=== PATIENT | male | born 1960 | race Caucasian/White ===

== ENCOUNTER 2019-10-31 11:45 | Inpatient (IN) | payer BC ==
[2019-11-03 11:26] VITALS: BMI 31.9
[2019-11-05] MEDS ORDERED: cefOXitin Sodium/Dextrose 2 GM/50 ML BAG ONE ×2 (06:10→09:28)
[2019-11-05] MEDS ORDERED: Lidocaine 1% w/Epinephrine 1:100K 20 ML VIAL ONE (06:38)
[2019-11-05] MEDS ORDERED: Bupivacaine 0.25% HCL 30 ML VIAL ONE (06:38)
[2019-11-05] MEDS ORDERED: Fentanyl 100 MCG/2 ML VIAL ONE ×5 (06:42→10:59)
[2019-11-05] MEDS ORDERED: Lidocaine 1% (PF) 30 ML VIAL ONE (06:42)
[2019-11-05] MEDS ORDERED: Midazolam HCl 2 mg/2 ml Vial ONE (06:42)
[2019-11-05] MEDS ORDERED: Famotidine/PF 20 mg/2ml Vial ONE (07:25)
[2019-11-05] MEDS ORDERED: Promethazine HCl 25 MG/ML VIAL IM PRN ×2 (09:09→09:14)
[2019-11-05] MEDS ORDERED: Meperidine HCl/PF 25 MG/ML VIAL SLOW IVP PRN (09:09)
[2019-11-05] MEDS ORDERED: Promethazine HCl 25 MG/ML VIAL SLOW IVP PRN (09:09)
[2019-11-05] MEDS ORDERED: HYDROmorphone 2 MG/ML VIAL SLOW IVP PRN (09:09)
[2019-11-05] MEDS ORDERED: Morphine 4 MG/ML VIAL SLOW IVP PRN (09:14)
[2019-11-05] MEDS ORDERED: hydrALAZINE 20 MG/ML VIAL SLOW IVP PRN (09:14)
[2019-11-05] MEDS ORDERED: Morphine 10 MG/ML VIAL SLOW IVP PRN (09:14)
[2019-11-05] MEDS ORDERED: Ondansetron PF 4 MG/2 ML Vial IVP PRN (09:14)
[2019-11-05] MEDS ORDERED: Morphine 2 MG/ML VIAL SLOW IVP PRN (09:14)
[2019-11-05] MEDS ORDERED: metroNIDAZOLE 500 MG in Premix Bag 1 BAG IVPB SCH (10:00)
[2019-11-05] MEDS ORDERED: HYDROmorphone 2 MG/ML VIAL ONE (10:00)
[2019-11-05] MEDS ORDERED: Rocuronium Bromide 10 MG/ML (10ML VIAL) ONE (10:30)
[2019-11-05] MEDS ORDERED: Glycopyrrolate 0.2 MG/ML 5 ML SYRINGE ONE (10:30)
[2019-11-05] MEDS ORDERED: PROPOFOL 200 MG/20 ML VIAL ONE (10:30)
[2019-11-05] MEDS ORDERED: Bupivacaine HCl 0.5%/Epinephrine 1:200,000/PF 30 ml Vial ONE (10:30)
[2019-11-05] MEDS ORDERED: Dexamethasone 20 MG/5 ML VIAL ONE (10:30)
[2019-11-05] MEDS ORDERED: Ketorolac Tromethamine 30 MG/ML VIAL ONE (10:30)
[2019-11-05] MEDS ORDERED: Ondansetron PF 4 MG/2 ML Vial ONE (10:30)
[2019-11-05] MEDS ORDERED: Lidocaine 1% PF 5 ML VIAL ONE (10:30)
[2019-11-05] MEDS: Ketorolac Tromethamine 30 MG/ML VIAL IVP SCH ×3 (12:16→23:54)
[2019-11-05] MEDS: Sodium Chloride 0.9% 1,000 ML IV SCH ×3 (12:17→23:53)
--- NOTE | 2019-11-05 14:02 | OP ---
DATE OF PROCEDURE: 11/05/2019 PREOPERATIVE DIAGNOSIS: Right colon cancer. PROCEDURE PERFORMED: Laparoscopic hand-assisted right hemicolectomy. INDICATIONS: This is 59-year-old male, who was having some heme-positive stools. Colonoscopy revealed a near obstructing mass in the right colon. It was tattooed. Biopsies were adenocarcinoma. FINDINGS: Baseball size mass at the hepatic flexure with probable lymphadenopathy in the mesentery. No evidence of hepatic mets. DESCRIPTION OF PROCEDURE: After informed consent was obtained, the patient was taken to the operating room and given general endotracheal anesthesia, placed in supine position. Abdomen was prepped and draped in usual fashion. He had undergone TAP blocks. A 5-mm incision was performed in the left upper quadrant. A Veress needle was inserted. Drop test performed. Pneumoperitoneum was created to a volume of 2 L of carbon dioxide. Utilizing a bladeless 5-mm trocar and 0-degree laparoscope, direct visual entry into the abdominal cavity was performed. Pneumoperitoneum was created to a pressure of 15 mmHg, and under direct vision another 5-mm port was placed in the left lower quadrant, third in the right lower quadrant. The right colon was mobilized utilizing the LigaSure. The appendix and ileum were mobilized. White line of Toldt was incised with the LigaSure. Then, the hepatic flexure was mobilized. I went ahead and split the omentum and was able to visualize the transverse colon distal to the mass. Once this was all freed up, a hand port was placed just above the umbilicus and I was able to grasp this and deliver it. The terminal ileum was divided utilizing a ROSE. The transverse colon was divided with a ROSE. The mesentery was divided with the LigaSure down to the vessels. There were nodes right down to the base of the mesentery. I was able to get under these nodes and clamped the vessels, divided the vessels and then suture ligate them with 2-0 silk suture ligature. The specimen was sent to Pathology for further analysis. A Pro Peristaltic [id number] functional end-to-end anastomosis was performed. An enterotomy was made in the ileum. The ROSE was inserted in the ileum. Then, an enterotomy in the colon and ROSE was inserted in the colon and the staple was mated, fired. Anastomosis was not bleeding. The common enterotomy was closed with a running 3-0 Stratafix PDS suture. The mesentery was closed with interrupted 3-0 Vicryl suture. Hemostasis was assured. The abdomen was re-insufflated, inspected all four quadrants. There was no evidence of bleeding. The omentum placed anterior. The fascia closed with interrupted [id number] of #1 Prolene. Then, hemostasis was assured. Subcu irrigated. Skin closed with running subcuticular 4-0 Rapide and interrupted 4-0 Rapide on the trocar sites. Dermabond applied on the trocar sites and Steri-Strips on the midline. Bandage applied. The patient tolerated the procedure well, transferred to Recovery in good condition. Sponge and needle count verified correct x2. Job ID: [id number]
[2019-11-05] MEDS: CEFAZOLIN 2 GM in Premix Bag 1 BAG IVPB SCH ×2 (15:07→21:23)
[2019-11-05] MEDS: metroNIDAZOLE 500 MG in Premix Bag 1 BAG IVPB SCH ×2 (17:07→23:55)
[2019-11-05] MEDS ORDERED: HYDROcodone/Acetaminophen 7.5/325 mg Tablet PO PRN (18:33)
[2019-11-05] MEDS: Famotidine 20 MG TAB PO SCH (19:31)
[2019-11-05] MEDS: Famotidine/PF 20 mg/2ml Vial SLOW IVP SCH (20:02)
[2019-11-06] MEDS: Ketorolac Tromethamine 30 MG/ML VIAL IVP SCH ×4 (05:01→23:19)
[2019-11-06 05:24] LABS: #Lymphocytes 0.7 thou/uL (1.20-3.40); #Monocytes 1.2 thou/uL (0.11-0.59); #Neutrophils 9.4 thou/uL (1.40-6.50); %Basophils 0.4 % (0.0-1.0); %Eosinophils 0.1 % (0.0-10.0); %Lymphocytes 5.8 % (21.0-51.0); %Monocytes 10.3 % (0.0-10.0); %Neutrophils 83.5 % (42.0-75.0); Hemoglobin 9.2 g/dL (14.0-18.0); Mean Corpuscular HGB CONC 31.4 g/dL (32.0-36.0); Mean Corpuscular Hemoglobin 25.9 pg (27.0-31.0); Mean Corpuscular Volume 82.5 fL (78.0-98.0); Mean Platelet Volume 8.7 fL (7.4-10.4); Platelet Count 231 thou/uL (130-400); RBC Distribution Width 14.2 % (11.5-14.5); Red Blood Cell (RBC) Count 3.54 mill/uL (4.70-6.10); White Blood Cell (WBC) Count 11.3 thou/uL (4.8-10.8)
[2019-11-06 05:41] LABS: Anion Gap 13 mmol/L (10-20); BUN (Urea Nitrogen) 11 mg/dL (8.4-25.7); Calc. Creatinine Clearance 110 mL/min (70-130); Calcium 8.6 mg/dL (7.8-10.44); Carbon Dioxide 23 mmol/L (23-31); Chloride 106 mmol/L (98-107); Estimated GFR-MDRD 81; Glucose 105 mg/dL (80-115); Potassium 4.4 mmol/L (3.5-5.1); Sodium 138 mmol/L (136-145)
[2019-11-06] MEDS ORDERED: Enoxaparin Sodium 40 MG/0.4 ML SYRINGE SC SCH ×2 (06:00→08:00)
--- NOTE | 2019-11-06 08:44 | PRG ---
DATE OF SERVICE: 11/06/2019 SUBJECTIVE: The patient says he feels pretty good. Pain is minimal, just soreness. No nausea or vomiting. OBJECTIVE: VITAL SIGNS: His temperature is 98.2, pulse 86, blood pressure 138/72. GENERAL: He looks good. His dressing is dry. ABDOMEN: Soft and nondistended. LABORATORY DATA: White count 11.3, H and H of 9 and 29, platelet count of 231. Electrolytes are fine. ASSESSMENT: Right colon cancer. PLAN: Discontinue Mcclure. Clear liquid diet. Ambulate. Job ID: [id number]
[2019-11-06] MEDS ORDERED: Acetaminophen 325 MG TAB PO PRN (09:15)
[2019-11-06] MEDS ORDERED: Acetaminophen 650 MG Suppository PR PRN (09:15)
[2019-11-06] MEDS ORDERED: HYDROcodone/Acetaminophen 7.5/325 mg Tablet PO PRN ×2 (09:15)
[2019-11-06] MEDS: Famotidine 20 MG TAB PO SCH ×2 (09:18→20:24)
[2019-11-06] MEDS: Famotidine/PF 20 mg/2ml Vial SLOW IVP SCH ×2 (09:19→20:24)
[2019-11-06] MEDS: Sodium Chloride 0.9% 1,000 ML IV SCH ×2 (09:23→17:16)
[2019-11-07] MEDS: Sodium Chloride 0.9% 1,000 ML IV SCH ×2 (05:05→09:42)
[2019-11-07] MEDS: Ketorolac Tromethamine 30 MG/ML VIAL IVP SCH (05:27)
[2019-11-07 08:08] VITALS: BP 156/90; TEMP 97.9
[2019-11-07] MEDS ORDERED: Enoxaparin Sodium 40 MG/0.4 ML SYRINGE SC SCH (09:00)
[2019-11-07] MEDS: Famotidine/PF 20 mg/2ml Vial SLOW IVP SCH (09:42)
[2019-11-07] MEDS: Famotidine 20 MG TAB PO SCH (10:43)
--- NOTE | 2019-11-09 06:08 | DIS ---
DATE OF ADMISSION: 11/05/2019 DATE OF DISCHARGE: 11/07/2019 DISCHARGE DIAGNOSIS: Colon cancer, right colon. PROCEDURE PERFORMED: Laparoscopic hand-assisted right hemicolectomy. HOSPITAL COURSE: The patient was admitted. He had undergone a mechanical bowel prep at home. He was taken to the operating room, where he underwent a laparoscopic hand-assisted right hemicolectomy. He has fairly large tumor with palpable lymphadenopathy. No evidence of metastatic disease to the liver. Postoperatively, he has done well. He had return of bowel function on postop day 1. He is tolerating full liquids. He is discharged home on hydrocodone and Zofran. He will follow up with me in 2 weeks. Job ID: [id number]
== END 2019-11-07 10:54 | disposition home or self-care (01) | DRG 331 ==
LOC: SURG A 11-05 05:54 → EDSTATUS 11-05 11:45 → SURG A 11-05 11:56
PROVIDERS: ADMIT Surgery; ATTEND Surgery
PROC: 0DTF0ZZ Resection of Right Large Intestine, Open Approach (ICD-10-PCS; principal; 2019-11-05)
DX: C18.2 Malignant neoplasm of ascending colon (principal); I10 Essential (primary) hypertension; E78.5 Hyperlipidemia, unspecified; E66.9 Obesity, unspecified; Z87.891 Personal history of nicotine dependence; Z11.59 Encounter for screening for other viral diseases; Z68.31 Body mass index [BMI] 31.0-31.9, adult; Z79.899 Other long term (current) drug therapy
CPT/HCPCS: 36415; 36416; 80048; 85025; 88309; J0670; J0690; J0694; J1100; J1170; J1650; J1885; J2001; J2250; J2405; J2704; J3010; S0020; S0028